=== PATIENT | male | born 1985 | race Caucasian/White ===

== ENCOUNTER 2024-04-16 11:45 | Day surgery (SDC) | payer OTHER, SELFPAY ==
[2024-04-11 08:55] VITALS: BMI 35.9
[2024-04-16] VITALS (12 sets, daily range): BP systolic 90–133; BP diastolic 50–83; PULSE 45–77; RESP 10–18; TEMP 36.7; O2SAT 93–99; BMI 35.3
--- NOTE | 2024-04-16 | DI.RAD.S_ITS ---
PROCEDURE: XR LUMBAR SPINE 2-3V INDICATIONS: L4-5 MICRODISECTOMY TECHNIQUE: 2 views of the lumbar spine were acquired. COMPARISON: None. FINDINGS: Localization device overlies the L4-L5 level. IMPRESSION: Intraoperative guidance provided. Dictated by: Mele Kent M.D. on 04/17/2024 at 17:37 Approved by: Mele Kent M.D. on 04/17/2024 at 17:37
[2024-04-16] MEDS: LACTATED RINGERS 1,000 ML 42 ML IV (13:04)
[2024-04-16] MEDS: ACETAMINOPHEN 325 MG TABLET 975 MG PO (13:39)
--- NOTE | 2024-04-16 14:18 | PM.PREOP ---
Pre-operative Note Interval Note History & Physical reviewed/Exam performed by Physician: Yes Changes to H&P: No
--- NOTE | 2024-04-16 14:35 | SUR.OPER ---
Prone on padded OR bed, head in foam head support, gel chest rolls, gel pad under knees, pillow under lower legs, toes free of pressure, arms secured on padded arm boards at <90 degrees abduction. Safety belt at thigh.
[2024-04-16] MEDS: CEFAZOLIN VIAL 3 GM in SODIUM CHLORIDE 0.9% 100 ML IV (15:02)
[2024-04-16] MEDS: BUPIVACAINE 0.25% (PF) 30 ML, EPINEPHrine 0.15 MG INJ (15:22)
--- NOTE | 2024-04-16 15:57 | PM.OP.1 ---
Operative Date/Time/Diagnoses Date of procedure: 04/16/24 Time of procedure: 14:50 Pre-op diagnosis: 1. L4-5 spinal stenosis 2. 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 L4-5 left hemilaminectomy and microdiscectomy 2. Utilization of microsurgical technique and operating microscope Same procedure as scheduled: Yes Indications: Patient has been having chronic back pain and worsening lumbar radiculopathy. Patient was found to have L4-5 lateral recess stenosis due to L4-5 left-sided paramedian disc herniation correlating with his symptoms. Patient failed multiple conservative management with worsening pain weakness and numbness in his lower extremity. Patient has been having difficulty performing activity of daily living. After discussing risks benefits of treatment options, patient elected proceed with surgery. Surgeon: Toby Mccray Ping Pong Table Assembler: Bridgette Taylor Click Yes if Unassisted: No Anesthesia Type: General Operative Notes Closure Type: primary Specimen(s): none sent Estimated Blood Loss (mL): 2 Blood products transfused: none Procedure in detail: Patient was seen in the preoperative area. Risks and benefits of the surgery was discussed with the patient. Informed consent was obtained from the patient and placed in the chart. Surgical site was marked. Patient was taken to the operative room. General anesthesia was administered. Prophylactic antibiotic was given to the patient less than 30 min before the incision was made. Patient was placed into a prone position on the Anant table. Patient's back was then prepped and draped in the sterile fashion. Time-out was performed at this time. Using AP and lateral C-arm imaging the interval between L4-5 was identified and marked on patient's back. A 1 inch incision 1 in from midline was made on the left side. The fascia was incised in line with skin incision. Globus MARS retractors was placed inside the incision and docked onto the L4 lamina. Using microsurgical technique and operating microscope, a L4 laminotomy was performed using a Kerrison rongeur. Liagamentum flavum was resected at the site of the laminotomy. The disc space at L4-5 was identified. Microdiscectomy was performed by incising the annulus with #11 blade. Microcurettes and pituitary was used to removed herniated disc fragments of disc from the epidural space. After the microdiskectomy was completed, the area medial lateral superior and inferior to the area of the microdiskectomy was inspected and explored using a micro curette. No other impinging structure was identified. The wound was then irrigated with sterile normal saline. 40 mg Depo-Medrol was placed into the epidural space. The deep fascia was closed with 1-0 Vicryl. The subcutaneous tissue was closed with 2-0 Vicryl. The skin was closed with skin lv. Patient tolerated the procedure well. There were no complications. Patient was transferred recovery room in stable condition. The Operation could not have been safely performed without compromising the technical result or length of the procedure, without the assistance of a skilled surgical territory manager. The surgical territory manager was medically necessary for proper positioning, retraction and manipulation of instruments, proper exposure, surgical preparation, and manipulation of tissue. Complications: none Post-operative Condition: stable Disposition: PACU Plan for aftercare: Discharge to home
[2024-04-16] MEDS: hydrOXYzine 50 MG/ML INJ 25 MG IM (16:07)
[2024-04-16] MEDS: ONDANSETRON 4 MG/2 ML INJ IV (16:09)
[2024-04-16] MEDS: OXYCODONE IR 5 MG TABLET PO ×2 (16:12→16:47)
[2024-04-16] MEDS: LORazepam 2 MG/ML INJ 1 MG IV (16:16)
[2024-04-16] MEDS: MEPERIDINE 50 MG/ML INJ IV (16:21)
[2024-04-16] MEDS: fentaNYL 100 MCG/2 ML INJ IV ×4 (16:28→16:49)
[2024-04-16] MEDS: methocarbamoL 500 MG TABLET 750 MG PO (17:37)
[2024-04-16] MEDS: KETOROLAC 30 MG/ML VIAL IV (17:37)
== END 2024-04-16 17:47 | disposition home or self-care (01) ==
PROVIDERS: Referring Provider Orthopaedic Surgery Orthopaedic Surgery of the Spine; Visit Provider Orthopaedic Surgery Orthopaedic Surgery of the Spine
PROC: (CPT 63030; principal; 2024-04-16 14:45)
DX: M51.26 Other intervertebral disc displacement, lumbar region (principal); M51.16 Intervertebral disc disorders with radiculopathy, lumbar region; M48.061 Spinal stenosis, lumbar region without neurogenic claudication
CPT/HCPCS: 63030; 72100; 76000; J0171; J0330; J0690; J1100; J1170; J1885; J2060; J2175; J2405; J2704; J2919; J3010; J3410